=== PATIENT | male | born 1975 | race Caucasian/White ===

== ENCOUNTER 2018-12-25 08:15 | Emergency (ER) | payer OTHER ==
[2018-12-25] MEDS: METHYLPREDNISOLONE 125 MG INJ IV (09:01)
[2018-12-25] MEDS: SOD CHLORIDE 0.9% 1,000 ML IV (09:01)
[2018-12-25] MEDS: KETOROLAC 30 MG INJ IV (09:02)
== END 2018-12-25 10:56 | disposition home or self-care (01) ==
LOC: FTE 08:15
DX: J02.0 Streptococcal pharyngitis (principal)
CPT/HCPCS: 96361; 96374; 96375; 99284-25